=== PATIENT | female | born 1940 | race Two or more races ===

== ENCOUNTER 2023-03-26 20:57 | Emergency (ER) | payer SELFPAY ==
[~2023-03-26] VITALS: Ht 165.1 cm; Wt 69.0 kg
[2023-03-26 21:01] VITALS: BP 148/70
[2023-03-26] MEDS ORDERED: ACETAMINOPHEN 325MG TABLET PO ONE (21:15)
[2023-03-26] MEDS ORDERED: MECLIZINE 25MG TABLET PO ONE (21:15)
[2023-03-26 21:49] LABS: HEMATOCRIT. 38.3 % (36.0-48.0); HEMOGLOBIN. 12.7 g/dL (12.0-16.0); MEAN CORPUSCULAR VOLUME 81.4 fL (81.0-99.0); MEAN PLATELET VOLUME 7.9 fl (7.4-10.4); PLATELET 220 x1000/uL (130-400); RED CELL DISTRIBUTION WIDTH 13.4 % (11.6-14.6)
[2023-03-26 21:50] LABS: CHLORIDE 104 mEq/L (98-107)
[2023-03-26] MEDS ORDERED: POLY10DR LEFTEYE (21:59)
[2023-03-26] MEDS ORDERED: HYDR25TA MT (21:59)
[2023-03-27 05:26] LABS: PLATELET ESTIMATE NORMAL
== END 2023-03-26 23:37 | disposition home or self-care (01) ==
LOC: ER 20:57
DX: H81.02 Meniere's disease, left ear (principal); H10.9 Unspecified conjunctivitis; I10 Essential (primary) hypertension
CPT/HCPCS: 36415; 80053; 80329; 85025; 99283; J8597